=== PATIENT | male | born 1990 | race Caucasian/White ===

== ENCOUNTER 2020-03-10 01:20 | Emergency (ER) | payer BC ==
[~2020-03-10] VITALS: Ht 167.6 cm; Wt 72.6 kg
[2020-03-10 01:25] VITALS: BP 150/96
[2020-03-10] MEDS ORDERED: NACL 0.9% 1,000 ML IV ONE (01:35)
== END 2020-03-10 01:43 ==
LOC: MED 01:20
DX: S20.219A Contusion of unspecified front wall of thorax, initial encounter (principal); Z02.89 Encounter for other administrative examinations; V49.88XA Car occupant (driver) (passenger) injured in other specified transport accidents, initial encounter; Y93.89 Activity, other specified; Y92.89 Other specified places as the place of occurrence of the external cause; Y99.8 Other external cause status
CPT/HCPCS: 96374; 96376; 99283; 99285